=== PATIENT | male | born 2000 | race Caucasian/White ===

== ENCOUNTER 2020-01-10 11:54 | Outpatient (REF) | payer OTHER, SELFPAY | END 2020-01-10 11:55 | disposition home or self-care (01) | LOC: HO.LAB 11:54 | PROVIDERS: Visit Provider Internal Medicine | DX: Z20.828 Contact with and (suspected) exposure to other viral communicable diseases (principal) | CPT/HCPCS: C9803; U0003 ==

== ENCOUNTER 2024-04-14 09:56 | Outpatient (AMB) | payer OTHER, SELFPAY ==
--- NOTE | 2024-04-14 10:02 | MHC.PC.OV ---
Vital Signs 04/14/24 10:12 Height 6 ft 1 in Weight 122 lb 2 oz BMI 16.1 BP 100/60 Blood Pressure Location Lt brachial Position Sitting Respiration 14 Pulse 62 Pulse Source Pulse Oximeter Temp 99.1 F Temp Source Oral Pulse Oximetry (%) 100 Oxygen Delivery Method Room Air Intake Visit Reasons: LAPEL BASTER/PErequest Intake Note: new pt establish care Container Finishing Inspector Required: No Allergies No Known Allergies Allergy (Verified 04/14/24 10:05) Medication List - Last Reconciled 04/14/24 by Nick Rodriguez MD No Known Home Meds Tobacco use date assessed: 04/14/24 Dental Screening Dental Screen Date: 04/14/24 Did you have a dental visit in the last 12 months?: Yes Did you have a dental problem in the last 6 months where you did not have access to dental care?: No Was dental information given to patient?: No HPI LAPEL BASTER/PErequest HPI Details New Patient? ?? Prior PCP:? Freddy Vivas Last office visit/CPE:? 2021 Acute issue(s):? Pt is underweight. Family members also thin. Pt feels well. No appetite issues. ?? PMHx:? Mild Anxiety SurgHx:? [place] Teeth FHx:?Mom: Melanoma. Dad: Goiter/thyroid, Melanoma, Anxiety. SocHx:? Nicotine pouch. Nonsmoker, EtOH: Socially 1-2 dr. No drugs. PFSH Surgical History (Updated 04/14/24 @ 10:07 by Ben Carmen CMA) [place] teeth removed Family History (Updated 04/14/24 @ 10:11 by Ben Carmen CMA) Mother High blood pressure Melanoma Father High blood pressure Thyroid disorder Melanoma GERD (gastroesophageal reflux disease) Paternal Grandmother High blood pressure Clotting disorder Thyroid disorder FH: mental illness Paternal Uncle GERD (gastroesophageal reflux disease) FH: mental illness Paternal Aunt FH: mental illness Social History (Updated 04/14/24 @ 10:07 by Ben Carmen CMA) Housing: House Patient Tobacco Use Status: Never used Tobacco e-Cigarette/Vaping Use: Never Used Second Hand Smoke Exposure: No Substance Use Type: Marijuana service: No Current occupational status: employed Current occupation: banker Current occupational exposures/hazards: No Cognitive needs: No Hearing needs: No Vision needs: No Questionnaire PHQ-9 Over the last 2 weeks, how often have you been bothered by any of the following problems? 1. Little interest or pleasure in doing things: not at all 2. Feeling down, depressed, or hopeless: not at all 3. Trouble falling or staying asleep, or sleeping too much: not at all 4. Feeling tired or having little energy: not at all 5. Poor appetite or overeating: not at all 6. Feeling bad about yourself - or that you are a failure or have let yourself or your family down: not at all 7. Trouble concentrating on things, such as reading the newspaper or watching television: not at all 8. Moving or speaking so slowly that other people could have noticed. Or the opposite - being so fidgety or restless that you have been moving around a lot more than usual: not at all 9. Thoughts that you would be better off or of hurting yourself in some way: not at all Total score: 0 Depression Screening Interpretation: Negative Depression Screening Done: Yes 17037 - PHQ-9 Billing: Yes Source: Developed by Drs. Armen Tang, Jackie Garcia, Roberth Figueroa and colleagues, with an educational goldy from [employer]. Thrive Questionnaire Date Thrive assessed: 04/14/24 I am a: Patient What is your living situation today?: I have a steady place to live Within the past 12 months, did the food you bought not last and you didn't have the money to get more?: Never true Within the past 12 months, did you worry whether your food would run out before you got money to buy more?: Never true Do you have trouble paying for medicines?: No Do you have trouble getting transportation to medical appointments?: No Do you have trouble paying your heating and electricity bill?: No Do you have trouble taking care of your child, family member or friend?: No Do you have trouble with day-to-day activities such as bathing, preparing meals, shopping, managing finances, etc.?: No Are you currently unemployed and looking for a job?: No Are you interested in more education?: No Please select the resources that you would like help with: None Currently or been in a relationship where the following occur: No concerns reported THRIVE Score: 0 AUDIT C Alcohol Use Questionnaire (AUDIT-C) 1. How often do you have a drink containing alcohol?: Monthly or less 2. How many drinks containing alcohol do you have on a typical day when you are drinking?: 1 or 2 3. How often do you have six or more drinks on one occasion?: Never Total Score: 1 Score Reviewed/Action Taken: Yes EFRAIN-7 AMB Questionnaire EFRAIN-7 Date EFRAIN - 7 assessed: 04/14/24 Feeling nervous, anxious, or on edge: 0 = Not at all Not being able to stop or control worryin = Not at all Worrying too much about different things: 0 = Not at all Trouble relaxin = Not at all Being so restless that it is hard to sit still: 0 = Not at all Becoming easily annoyed or irritable: 0 = Not at all Feeling afraid as if something awful might happen: 0 = Not at all Total EFRAIN-7 score (0-4 normal; 5-9 mild; 10-14 moderate; 15-21 severe): 0 Source: Developed by Drs. Armen Tang, Jackie Garcia, Roberth Figueroa and colleagues, with an educational goldy from [employer]. EFRAIN-7 Assessment Billing EFRAIN-7 Assessment Tool: EFRAIN-7 Assessment 33957 Review of Systems Const Denies chills, Denies fatigue, Denies fever(s), Denies headache(s) and Denies weakness Eyes Denies change in vision ENT Denies dizziness and Denies headache(s) Card Denies chest pain, Denies lightheadedness, Denies dyspnea and Denies other (Palpitations) Resp Denies cough, Denies dyspnea, Denies wheezing and Denies other ( shortness of breath) GI Denies abdominal pain, Denies melena, Denies hematochezia, Denies change in bowel habits, Denies dyspepsia and Denies nausea Denies hematuria and Denies dysuria Musc Denies numbness and Denies tingling Skin/Breast Denies rash, Denies unusual bruising and Denies wounds Neuro Denies dizziness, Denies headache(s), Denies numbness, Denies Sensory deficit (Neuro), Denies tingling, Denies paresthesias and Denies weakness Psych Denies anxiety and Denies depression Endo Denies fatigue Kenny/Lymph Denies easy bleeding and Denies easy bruising Aller/Immun Denies wheezing Physical exam (Primary Care) Vital Signs: Last Vital Signs Temp 99.1 F 04/14/24 10:12 Pulse 62 04/14/24 10:12 Resp 14 04/14/24 10:12 BP 100/60 04/14/24 10:12 Pulse Ox 100 04/14/24 10:12 Oxygen Delivery Method Room Air 04/14/24 10:12 BMI result Body Mass Index 16.1 Tobacco/Smoking Status: Tobacco use Status Tobacco use date assessed 04/14/24 04/14/24 10:15 Patient Tobacco Use Status Never used Tobacco 04/14/24 10:15 e-Cigarette/Vaping Use Never Used 04/14/24 10:15 PHQ-9: PHQ-9 Score PHQ-9: Total score 0 04/14/24 10:33 Depression Screening Interpretation: Negative Thrive Assessment: Date of Thrive Assessment Date Thrive assessed 04/14/24 04/14/24 10:15 Currently or been in a relationship where the following occur: No concerns reported Const General: no acute distress and well developed Nutritional Appearance: well nourished and underweight Orientation/consciousness: patient oriented x3 HENMT Head: Yes normocephalic and Yes atraumatic Ears: hearing grossly normal bilaterally and TM's normal bilaterally General nose exam: Normal external nose present and Normal nares present Mouth: Normal oral and palatal mucosa present and moist mucous membranes Teeth and gingiva: dentition normal Throat: Yes posterior oropharynx normal Eyes General: appearance normal, both eyes and all related structures Pupils: Equal, round and reactive pupils present EOM: EOMs intact bilaterally Neck Neck: Yes normal visual inspection, Yes no lymphadenopathy and Yes trachea midline Thyroid: Thyroid normal Carotids: no bruits Lymphatic: no lymphadenopathy noted Chest Chest palpation & inspection: normal inspection of the chest Resp Effort & Inspection: normal respiratory effort Auscultation: clear to auscultation bilaterally Cardio Rate: regular rate Rhythm: regular rhythm Heart sounds: S1 normal heart sound present, S2 normal heart sound present, no gallops, no murmurs and no rubs Bruits: no abdominal aortic bruits and no carotid bruits GI Palpation (GI): No Abdominal aortic bruit present, Soft to palpation, nontender, No hepatosplenomegaly present and No Rebound tenderness present Auscultation: normal bowel sounds General: Yes no CVA tenderness Back/Spine/Pelvis Back: no CVA tenderness Cervical Spine: cervical ROM normal and No Cervical spine tenderness Thoracic/Lumbar Spine: thoraco-lumbar ROM normal, No pain with thoraco-lumbar ROM, No thoracic spinal tenderness and No lumbar spinal tenderness Skin Lesions: no lesions Rashes: no rashes Trauma: no lacerations or abrasions Wounds: no wounds Nails: normal Neuro General: patient oriented x3 and gait normal Cranial nerves: Yes Equal, round and reactive pupils present Cognition (Neuro): normal cognition Gait exam (Neuro): Normal gait present Motor exam (neuro): 5/5 motor strength present throughout Sensory Exam: No Sensory deficit (Neuro) Deep tendon reflexes (DTR's): Right patellar reflex intensity grade: 2+ and Left patellar reflex intensity grade: 2+ Extrem General: Yes normal to inspection and No edema Psych Appearance: grossly normal Affect: normal affect Attitude: cooperative Thought process: Normal thought process present Coding Level of Care Code New Pt Level 3 (34019) Diagnoses Adult general medical exam Z00.00 Underweight (BMI < 18.5) R63.6; Z68.1 Anxiety F41.9 Additional Codes EFRAIN-7 Assessment Billing - EFRAIN-7 Assessment Tool: EFRAIN-7 Assessment 11651 ([id number]) PHQ-9 - 76081 - PHQ-9 Billing: Yes ([id number]) Assessment & Plan Assessment & Plan (1) Adult general medical exam: Code(s): Z00.00 - Encounter for general adult medical examination without abnormal findings Category: Medical Plan: 23-year-old?male?presents?as?new?patient?for?complete?physical?exam Encouraged?healthy?diet?with?active?lifestyle?and?exercise. (2) Underweight (BMI < 18.5): Code(s): R63.6 - Underweight; Z68.1 - Body mass index [BMI] 19.9 or less, adult Category: Medical Plan: Underweight?status?but?appears?healthy?today. Family?members?who?are?thin?also.??No?appetite?problems. Encouraged?high-protein?diet?and?resistance?training (3) Anxiety: Code(s): F41.9 - Anxiety disorder, unspecified Category: Medical Plan: Mild?anxiety. Patient?declines?medication?or?referral?to?therapy?today. I?let?him?know?that?these?are?available. Orders: Orders TSH reflex Free T4 Today Z00.00 - Encounter for general adult medical examination without abnormal findings Syphilis Screen Today Z11.3 - Encounter for screening for infections with a predominantly sexual mode of transmission Vitamin D 25-OH Total Today E55.9 - Vitamin D deficiency, unspecified Comprehensive [place]. Panel Fast Today Z00.00 - Encounter for general adult medical examination without abnormal findings Lipid Panel Today Z00.00 - Encounter for general adult medical examination without abnormal findings Microalbumin, Random (w Creat) Today I10 - Essential (primary) hypertension Complete Blood Count Auto Diff Today Z00.00 - Encounter for general adult medical examination without abnormal findings UA and rflx microscopic Today Z00.00 - Encounter for general adult medical examination without abnormal findings CT NG by PCR Today Z11.3 - Encounter for screening for infections with a predominantly sexual mode of transmission Hepatitis B,C Profile Today Z11.3 - Encounter for screening for infections with a predominantly sexual mode of transmission HIV Ab/Ag Today Z11.3 - Encounter for screening for infections with a predominantly sexual mode of transmission Vitamin B12 and Folate Today E53.8 - Deficiency of other specified B group vitamins
[2024-04-14 10:12] VITALS: BP 100/60; PULSE 62; RESP 14; TEMP 37.3; O2SAT 100; BMI 16.1
--- OUTSIDE RECORDS SUMMARY | 2024-04-14 10:39 | XMS_ITS | Encounter Summary ---
Author Organization [facility] Address [address] [place] [address] Phone Care Team Providers Care Portable Sawyer Name Role Phone Freddy Curtis MD Primary Care Provider [phone] Encounter Details Date Type Department Care Team (Late st Contact Info) Description 07/27/2014 Documentation [facility] [place] [address] [place], [place] [phone] Family Medicine, Physician [address] [place], [place] [phone] Social History Tobacco Use Types Packs/Day Years Used Date Smoking Tobacco: Never Assessed Sex and Gender Information Value Date Recorded Sex Assigned at Not on file Legal Sex Male 4:57 PM EDT Gender Identity Not on file Sexual Orientation Straight 10/30/2021 2: 20 PM EDT documented as of this encounter Plan of Treatment Not on file documented as of this encounter Visit Diagnoses Not on filedocumented in this encounter Care Teams Portable Sawyer Relationship Specialty Start Date End Date Freddy Curtis MD [address] [place] [id number] PCP - General Pediatrics 06/21/17 06/03/22 documented as of this encounter
--- OUTSIDE RECORDS SUMMARY | 2024-04-14 10:39 | XMS_ITS | Encounter Summary ---
Author Organization [facility] Address [address] [place] [address] Phone Care Team Providers Care Care Center Manager Name Role Phone Freddy Curtis MD Primary Care Provider [phone] Encounter Details Date Type Department Care Team (Late st Contact Info) Description 09/22/2012 Documentation [facility] [place] Medicine [address] [place] [address] Family Medicine, Physician [address] [place], [place] [phone] Social History Tobacco Use Types Packs/Day Years [...] on filedocumented in this encounter Care Teams Care Center Manager Relationship Specialty Start Date End Date Freddy Curtis MD [address] [place] [id number] PCP - General Pediatrics 06/21/17 06/03/22 documented as of this encounter
--- OUTSIDE RECORDS SUMMARY | 2024-04-14 10:39 | XMS_ITS | Encounter Summary ---
Author Organization [facility] Address [address] [place] [address] Phone Care Team Providers Care Timber Skidder Name Role Phone Freddy Curtis MD Primary Care Provider Encounter Details Date Type Department Care Team (Late st Contact Info) Description 10/08/2016 Conversion Encounter [facility] [place] [address] [place] [address] Social History Tobacco Use Types Packs/Day Years Used Date Smoking Tobacco: Never Comments:Never smoker Sex and Gender Information Value Date Recorded Sex Assigned at Not on file Legal Sex Male 4:57 PM EDT Gender Identity Not on file Sexual Orientation Straight 10/30/2021 2: 20 PM EDT documented as of this encounter Plan of Treatment Not on file documented as of this encounter Visit Diagnoses Not on filedocumented in this encounter Care Teams Timber Skidder Relationship Specialty Start Date End Date Freddy Curtis MD [address] [place] [address] PCP - General Pediatrics 06/21/17 06/03/22 documented as of this encounter
--- OUTSIDE RECORDS SUMMARY | 2024-04-14 10:39 | XMS_ITS | Clinical Summary ---
Author Organization [facility] Address [address] [place] [address] Phone Care Team Providers Care Business Associate Name Role Phone Unavailable Primary Care Provider Unavailabl e Allergies Active Allergy Reactions Criticality Noted Date Comments Environmental 01/27/2021 Seasonal Medications Clindamycin Phos-Benzoyl Perox gel APPLY IN THE EVENING FOR ACNE FACE CHEST BACK 3 08/18/2017 Active Cetirizine HCl (ZYRTEC ALLERGY) 10 MG capsule Take by mouth. Active doxycycline 100 MG capsule TAKE 1 CAPSULE EVERY DAY WITH FOOD (NO DAIRY). REMAIN UPRIGHT AT LEAST 30 MINUTES AFTER TAKING. 08/20/2021 Active Active Problems Problem Noted Date Diagnosed Date Acute seasonal allergic rhinitis due to pollen 0 08/27/2017 Assessment & Plan (10/30/2021 2:09 PM EDT): Well control, OTC as needed. Acne vulgaris 08/17/2016 Overview (08/27/2017): Started benzoyl peroxide wash bid and tretinoin cream qhs. 08/08, Assessment & Plan (10/30/2021 2:09 PM EDT): BP+ Clinda cream, good compliance, better. Minimal at the moment Anxiety 07/05/2014 Overview (08/27/2017): Some mild sx of anxiety especially prior to sports competition - feels his heart racing. Being managed with homoe support, redirection. 07/06. Atopic dermatitis 05/30/2009 Assessment & Plan (10/30/2021 2:08 PM EDT): Usually during winter. Lotion prn for now. Immunizations Immunization Administration Dates Next Due DTaP 5 05/15/2004, 2,2000,09/13,2000 H1N1 03/13/2009,02/04/2009,01/29/2009 Hep A, ped/adol 07/31/2015,07/05/2014 Hep B, ped/adol 2000,2000,2000 Hib (PRP-T) 08/10/2001, 1,2000,05/17 IPV 05/15/2004, 2,2000,05/17 Influenza Split 12/29/2011,01/21/2011,11/18/2009 Influenza, injectable, quadr ivalent, preservative free 10/30/2021,12/21/2020,12/31/2018,01/27,03/03/2017,01/17/2013 Influenza, injectable, trivalent 02/06/2005,11/23 MMR 05/15/2004,05/18/2001 Meningococcal B Trumenba 08/18/2019,08/11/2018 Meningococcal Conj (Menactra) MCV4P 08/27/2017,0 05/30/2012 Pneumococcal Conjugate 08/10/2001,2000,2000,05/17 Tdap 05/30/2012 Varicella 05/13/2009,05/18/2001 Family History Medical History Relation Name Comments No Known Problems Brother Andi Villa Goiter Father Nick Hyperlipidemia Father Nick Hypertension Father Nick No Known Problems Mother Lupe Anxiety disorder Other Relation Name Status Comments Brother Andi Villa Alive Brother: Alive and well Father Nick Alive Father: Hyperte nsion, Hyperlipidemia Maternal Grandmother Alive Materna l grandmother: Hypertension, Diabetes mellitus Mother Lupe Alive Mother: Alive a nd well Other Paternal Grandfather Alive Paterna l grandfather: Seizure disorder Paternal Grandmother Alive Paterna l grandmother: Hypertension, Hyperlipidemia Social History Tobacco Use Types Packs/Day Years Used Date Smoking Tobacco: Never Smokeless Tobacco: Never Tobacco Cessation:Counseling Given: Yes Comments:Never smoker Alcohol Use Standard Drinks/Week Comments Never 0 (1 standard drink = 0.6 oz pur e alcohol) Hunger/Food Answer Date Recorded In the last 12 months, did y ou or your family ever eat less than you felt you should because there wasn't enough money for food? No 09/16/2020 Stable Housing Answer Date Recorded Are you worried that in the next 2 months you may not have stable housing? No 09/16/2020 Transportation Concerns Answer Date Rec orded In the last 12 months, have you or your family ever had to go without healthcare because you didn't have a way to get there? No 09/16/2020 Hazards in Home Answer Date Recorded Think about the place you li ve. Do you have problems with any of the following? Pests (mice or roaches), mold, no/not working smoke detectors, water leaks, no window guards. No 2020 Financing Utilities Answer Date Recorde d In the last 12 months, has t he electric, gas, oil, or water company threatened to shut off your services in your home? No 09/16/2020 Safety at Home Answer Date Recorded Are you or your family worried about feeling saf e in your home? No 09/16/2020 Outside Support Answer Date Recorded Do you feel that you need mo re support from other people or programs to help you care for yourself or your family? No 09/16/2020 Understanding Health Concerns Answer Da te Recorded Do you need help understandi ng your or your child's healthcare needs (diagnosis, medications, plan, etc.)? No 09/16/2020 Financing Health Concerns Answer Date R ecorded In the last 12 months, was t here a time when your child needed to see a doctor or get medications or supplies but could not because of cost? No 09/16/2020 Missing School or Work Answer Date Gasper rded Did you or your child miss s chool or work because of a health problem that could have been avoided? No 09/16/2020 Sex and Gender Information Value Date Recorded Sex Assigned at Not on file Legal Sex Male 4:57 PM EDT Gender Identity Not on file Sexual Orientation Straight 10/30/2021 2: 20 PM EDT Last Filed Vital Signs Vital Sign Reading Time Taken Comments Blood Pressure 110/70 10/30/2021 2:19 PM EDT Pulse 73 10/30/2021 1:58 PM EDT Temperature 36.6 ??C (97.9 ??F) 10/30/2021 1:58 PM E DT Respiratory Rate - - Oxygen Saturation - - Inhaled Oxygen Concentration - - Weight 54.9 kg (121 lb) 10/30/2021 1:58 PM EDT Height 185.4 cm (6' 1 ) 10/30/2021 1:58 PM EDT Body Mass Index 15.96 10/30/2021 1:58 PM EDT Plan of Treatment Health Maintenance Due Date Last Done Comments HPV Vaccines (1 - Male 3-dos e series) 05/13/2015 DTaP,Tdap,and Td Vaccines (6 - Td or Tdap) 05/30/2022 05/30/2012, 05/15/2004, 11/09/2001, Additional history exists Influenza Vaccines (#1) 2023 10/31/19, 12/21/2020, 12/31/2018, Additional history exists COVID-19 Vaccine (2023-2 5 season) 2023 05/17/2021, 09/20/2020, 08/23/2020 Hepatitis B Vaccines Completed 2000, 2000, 2000 HIB Vaccines Completed 08/10/2001, 10/23, 2000, Additional history exists Pneumococcal Vaccine Completed 08/10/2001, 2000, 2000, Additional history exists IPV Vaccines Completed 05/15/2004, 10/23, 2000, Additional history exists MMR Vaccines Completed 05/15/2004, 05/18/2001 Varicella Vaccines Completed 05/13/2009, 05/18/2001 Hepatitis A Vaccines Completed 07/31/2015, 07/06/19 15 Meningococcal Vaccine Completed 08/27/2017, 013 Men B Vaccine Completed 08/18/2019, 08/11/2018
== END 2024-04-14 10:53 | disposition home or self-care (01) ==
PROVIDERS: PCP Family Medicine; Visit Provider Family Medicine
DX: Z00.00 Encounter for general adult medical examination without abnormal findings (principal); R63.6 Underweight; Z68.1 Body mass index [BMI] 19.9 or less, adult; F41.9 Anxiety disorder, unspecified

== ENCOUNTER → 2024-04-14 09:56 | Outpatient (BNVA) | payer OTHER, SELFPAY | PROVIDERS: PCP Family Medicine; Visit Provider Family Medicine | DX: Z00.00 Encounter for general adult medical examination without abnormal findings (principal); R63.6 Underweight; Z68.1 Body mass index [BMI] 19.9 or less, adult; F41.9 Anxiety disorder, unspecified | CPT/HCPCS: 96127 ==

== ENCOUNTER 2024-04-25 08:39 | Outpatient (REF) | payer OTHER, SELFPAY ==
--- OUTSIDE RECORDS SUMMARY | 2024-04-25 09:15 | XMS_ITS | Encounter Summary ---
Author Organization [facility] Address [address] [place] [address] Phone Care Team Providers Care Realtime Court Reporter Name Role Phone Freddy Curtis MD Primary Care Provider [phone] Encounter Details Date Type Department Care Team (Late st Contact Info) Description 10/08/2016 Conversion Encounter [facility] [place] [address] [place] [address] Social History Tobacco Use Types Packs/Day Years [...] on filedocumented in this encounter Care Teams Realtime Court Reporter Relationship Specialty Start Date End Date Freddy Curtis MD [address] [place] [address] PCP - General Pediatrics 06/21/17 06/03/22 documented as of this encounter
--- OUTSIDE RECORDS SUMMARY | 2024-04-25 09:15 | XMS_ITS | Encounter Summary ---
Author Organization [facility] Address [address] [place] [address] Phone Care Team Providers Care Appliance Service Supervisor Name Role Phone Freddy Curtis MD Primary Care Provider [phone] Encounter Details Date Type Department Care Team (Late st Contact Info) Description 09/22/[address] [facility] [place] [address] [place] [address] Family Medicine, Physician [address] [place], [place] [phone] Social History Tobacco Use Types Packs/Day Years [...] on filedocumented in this encounter Care Teams Appliance Service Supervisor Relationship Specialty Start Date End Date Freddy Curtis MD [address] [place] [address] PCP - General Pediatrics 06/21/17 06/03/22 documented as of this encounter
--- OUTSIDE RECORDS SUMMARY | 2024-04-25 09:15 | XMS_ITS | Clinical Summary ---
Author Organization [facility] Address [address] [place] [phone] Phone Care Team Providers Care Director Of Head Start Name Role Phone Unavailable Primary Care Provider [...] Usually during winter. Lotion prn for now. Encounters Date Type Department Care Team Description 04/20/2024 Telephone [facility] [place] [address] [place], [place] [phone] Karina Smith MD Medical Records from Last 3 Months Immunizations Immunization Administration Dates Next Due DTaP [...] 36.6 ??C (97.9 ??F) 10/30/2021 1:58 PM ED T Respiratory Rate - - Oxygen Saturation - [...]
--- OUTSIDE RECORDS SUMMARY | 2024-04-25 09:15 | XMS_ITS | Encounter Summary ---
Author Organization [facility] Address [address] [place] [address] Phone Care Team Providers Care Senior Tech Manufacturing Engineering Name Role Phone Freddy Curtis MD Primary Care Provider [phone] Encounter Details Date Type Department Care Team (Late st Contact Info) Description 07/27/2014 Documentation [facility] [place] Family Medicine [address] [place], [place] [id number] Family Medicine, Physician [address] [place], [place] [id number] Social History Tobacco Use Types Packs/Day Years [...] on filedocumented in this encounter Care Teams Senior Tech Manufacturing Engineering Relationship Specialty Start Date End Date Freddy Curtis MD [address] [place] [id number] PCP - General Pediatrics 06/21/17 06/03/22 documented as of this encounter
--- OUTSIDE RECORDS SUMMARY | 2024-04-25 09:15 | XMS_ITS | Encounter Summary ---
Author Organization [facility] Address [address] [place] [address] Phone Care Team Providers Care Inspector Fibrous Wallboard Name Role Phone Unavailable Primary Care Provider Unavailabl e Reason for Visit * Reason Onset Date Comments Medical Records 04/20/2024 Encounter Details Date Type Department Care Team (Late st Contact Info) Description 04/20/2024 Telephone [facility] [place] [address] [place] [address] Karina Smith MD [address] [place] [address] Medical Records Social History Tobacco Use Types Packs/Day Years Used Date Smoking Tobacco: Never Smokeless Tobacco: Never Comments:Never smoker Alcohol Use Standard Drinks/Week Comments [...] PM EDT documented as of this encounter Miscellaneous Notes * Telephone Encounter - Keisha Willis - 04/20/2024 1:44 PM EST Authorization for Release of Records received on 04/04/24 completed by Patient. Records Faxed on 04/20/24 by Keisha Willis. Records Faxed to [facility] at [phone] to/by Keisha Willis on 04/20/24. documented in this encounter Plan of Treatment Not on file documented as of this encounter Visit Diagnoses Not on filedocumented in this encounter
[2024-04-25 11:19] LABS: Appearance Urine Clear; Color Urine Yellow; Glucose Urine UA Negative (Negative); Leukocyte Esterase Urine Negative (Negative); Nitrite Urine Negative (Negative); PH 5.5 (5.0-9.0); UMIC TRIGGER UA YES; Urine Blood Trace (Negative); Urine Ketones Negative (Negative); Urine Protein Negative (Neg-Trace)
[2024-04-25 11:19] LABS: MANUAL DIFF FLAG NO
[2024-04-25 11:22] LABS: Bacteria Urine None Seen (None Seen); Hyaline Casts Urine 0-2 /LPF (0-2); RBC Urine 0-2 /HPF (0-2); Squamous Epithelial Cell Urine 0-2 /HPF (0-2); WBC Urine 0-5 /HPF (0-5)
[2024-04-25 11:31] LABS: Hematocrit 40.8 % (42.0-52.0); Hemoglobin 13.9 g/dl (14.0-18.0); Imm Gran Abs Auto 0.01 X10*3/uL (0.00-0.03); Imm Gran Pct Auto 0.3 % (0.0-0.4); Lymphocytes Absolute Auto 0.8 X10*3/uL (1.2-4.9); Lymphocytes Percent Auto 28.6 % (20-40); Mean Corpuscular HGB Conc 34.1 g/dl (31.0-36.0); Mean Corpuscular Hemoglobin 29.4 pg (27.0-33.0); Mean Corpuscular Volume 86.4 fL (80.0-98.0); Mean Platelet Volume 10.1 fL (9.4-12.4); Monocytes Absolute Auto 0.2 X10*3/uL (0.1-1.2); Monocytes Percent Auto 7.9 % (2-11); Neutrophils Absolute Auto 1.8 x10*3/uL (2.0-8.3); Neutrophils Percent Auto 61.2 % (45-73); Platelet Count 282 X10*3/uL (160-400); Red Blood Count 4.72 X10*6/uL (4.60-5.80); Red Cell Distribution Width 11.6 % (11.0-16.0); White Blood Count 2.9 X10*3/uL (4.8-10.8)
[2024-04-25 12:01] LABS: Alanine Aminotransferase 16 U/L (0-40); Albumin Level 4.9 g/dL (3.5-5.0); Alkaline Phosphatase 47 U/L (39-117); Anion Gap 12 (12-20); Aspartate Amino Transferase 18 U/L (5-37); Bilirubin Total 0.8 mg/dL (0.0-1.0); Blood Urea Nitrogen 12 mg/dL (9-16); Calcium 9.8 mg/dL (8.4-10.2); Carbon Dioxide 29 mmol/L (22-29); Chloride 106 mmol/L (96-108); Cholesterol 188 mg/dL (<200); Estimated Glomerular Filt Rate > 60; Glucose Fasting 109 mg/dL (60-99); HDL Cholesterol 81 mg/dL (>40); LDL Cholesterol Calculated 98 mg/dL (<100); Sodium 143 mmol/L (135-145); Total Protein 8.3 g/dL (6.5-8.0); Triglycerides 45 mg/dL (<150)
[2024-04-25 12:19] LABS: Microalbum/Creatinine Ratio Ur 11.2 ug/mg cr (<30)
[2024-04-25 12:19] LABS: TSH reflex Free T4 0.84 uIU/mL (0.32-4.0); Vitamin D 25-OH Total 15.8 ng/mL (>30)
[2024-04-25 12:42] LABS: HBS Num1 0.18 mIU/mL (0-7.99); HBc Num1 0.12 S/CO (0.00-0.79); HBsAGNum1 0.31 S/CO (0.00-0.99); HIV AB/AG Nonreactive (Nonreactive); HIV Num 1 0.08 S/CO (0.00-0.99); Hepatitis B Core Antibody Nonreactive (Nonreactive); Hepatitis B Surface Antigen Negative (Negative); ~HepC Num1 0.11 S/CO (0.00-0.79); ~Hepatitis B Surface Antibody NONREACTIVE (Nonreactive); ~Hepatitis C Antibody Nonreactive (Nonreactive)
[2024-04-25 12:47] LABS: CT PCR NOT DETECTED (Not Detect.); NG PCR NOT DETECTED (Not Detect.)
[2024-04-25 12:48] LABS: Syphilis Screen Nonreactive (Nonreactive)
[2024-04-25 12:49] LABS: Folate 13.5 ng/mL (> or = 4.0); Vitamin B12 716 pg/mL (200-900)
== END 2024-04-25 08:40 | disposition home or self-care (01) ==
LOC: HO.WFDLDS 08:39
PROVIDERS: Visit Provider Family Medicine
DX: Z00.00 Encounter for general adult medical examination without abnormal findings (principal); Z11.3 Encounter for screening for infections with a predominantly sexual mode of transmission; I10 Essential (primary) hypertension; E53.8 Deficiency of other specified B group vitamins; E55.9 Vitamin D deficiency, unspecified
CPT/HCPCS: 80053; 80061; 81001; 82043; 82306; 82570; 82607; 82746; 84443; 85025; 86704; 86706; 86780; 86803; 87340; 87389; 87491; 87591

== ENCOUNTER 2024-05-04 16:41 | Outpatient (AMB) | payer OTHER, SELFPAY ==
--- NOTE | 2024-05-04 16:40 | MHC.PC.OV ---
Intake Visit Reasons: f/u CPE-labs via telemedicine Ob Gyn Required: No Allergies No Known Allergies Allergy (Verified 05/04/24 16:40) Tobacco use date assessed: 04/14/24 Dental Screening Dental Screen Date: 04/14/24 HPI f/u CPE-labs via telemedicine HPI Details 23 y/o male presents to f/u labs via telemedicine. Labs drawn 04/25/24. Reviewed labs with pt. Mild anemia. Elevated fasting glucose of 109. He notes he felt like he had a good 12 hour fast. Triglycerides 45. TC 188. LDL 98. HDL 81. Vitamin D low at 15.8 ng/mL. [facility] Surgical History (Updated 04/14/24 @ 10:07 by DEB Bolanos) [place] teeth removed Family History (Updated 04/14/24 @ 10:11 by DEB Bolanos) Mother High blood pressure Melanoma Father High blood pressure Thyroid disorder Melanoma GERD (gastroesophageal reflux disease) Paternal Grandmother High blood pressure Clotting disorder Thyroid disorder FH: mental illness Paternal Uncle GERD (gastroesophageal reflux disease) FH: mental illness Paternal Aunt FH: mental illness Social History (Updated 04/14/24 @ 10:07 by DEB Bolanos) Housing: House Patient Tobacco Use Status: Never used Tobacco e-Cigarette/Vaping Use: Never Used Second Hand Smoke Exposure: No Substance Use Type: Marijuana service: No Current occupational status: employed Current occupation: banker Current occupational exposures/hazards: No Cognitive needs: No Hearing needs: No Vision needs: No Questionnaire Thrive Questionnaire Date Thrive assessed: 04/14/24 EFRAIN-7 AMB Questionnaire EFRAIN-7 Date EFRAIN - 7 assessed: 04/14/24 Source: Developed by Drs. Armen Tang, Jackie Garcia, Roberth Figueroa and colleagues, with an educational goldy from [employer]. Review of Systems Const Denies chills, Denies fatigue, Denies fever(s), Denies headache(s) and Denies weakness ENT Denies dizziness and Denies headache(s) Card Denies dyspnea Resp Denies cough, Denies dyspnea, Denies wheezing and Denies other (shortness of breath) Musc Denies numbness and Denies tingling Neuro Denies dizziness, Denies headache(s), Denies numbness, Denies tingling and Denies weakness Psych Denies anxiety and Denies depression Endo Denies fatigue Aller/Immun Denies wheezing Physical exam (Primary Care) Tobacco/Smoking Status: Tobacco use Status Tobacco use date assessed 04/14/24 05/04/24 16:40 Patient Tobacco Use Status Never used Tobacco 05/04/24 16:40 e-Cigarette/Vaping Use Never Used 05/04/24 16:40 Thrive Assessment: Date of Thrive Assessment Date Thrive assessed 04/14/24 05/04/24 16:40 Telehealth Telehealth Telehealth Platform: Telephone Location of provider rendering services: practice address Location of patient: address on file Patient Identification confirmed using: Name, : Yes Telehealth method: voice only Patient verbally consented to treatment: Yes Patient verbally consented to billing insurance company: Yes Patient informed of any privacy concerns related to visit: Yes Minutes spent on Phone/Video with Pt.: 6 Coding Level of Care Code Tele Est Pt Level 2 (59476) Diagnoses Mild anemia D64.9 Elevated fasting glucose R73.01 Low vitamin D level R79.89 Assessment & Plan Assessment & Plan (1) Mild anemia: Code(s): D64.9 - Anemia, unspecified Category: Medical Plan: Mild?anemia?and?mild?leukocytopenia Will?recheck?these?with?next?blood?draw. (2) Elevated fasting glucose: Code(s): R73.01 - Impaired fasting glucose Category: Medical Plan: Fasting?blood?sugar?is?elevated.??Will?recheck?this?with?next?blood?draw?along?with?an?A1c (3) Low vitamin D level: Code(s): R79.89 - Other specified abnormal findings of blood chemistry Category: Medical Plan: Low?vitamin-D?level.??He?has?started?vitamin-D?supplement. Will?recheck?vitamin-D?with?next?blood?draw Orders: Orders Complete Blood Count Auto Diff Today D64.9 - Anemia, unspecified, Z00.00 - Encounter for general adult medical examination without abnormal findings Hemoglobin A1c Today R73.01 - Impaired fasting glucose Comprehensive [place]. Panel Fast Today R73.01 - Impaired fasting glucose, Z00.00 - Encounter for general adult medical examination without abnormal findings Reticulocyte Count Today D64.9 - Anemia, unspecified Vitamin D 25-OH Total Today E55.9 - Vitamin D deficiency, unspecified, R79.89 - Other specified abnormal findings of blood chemistry IRON PROFILE Today D64.9 - Anemia, unspecified Vitamin B12 and Folate Today D64.9 - Anemia, unspecified, E53.8 - Deficiency of other specified B group vitamins Ferritin Today D64.9 - Anemia, unspecified
--- OUTSIDE RECORDS SUMMARY | 2024-05-04 19:24 | XMS_ITS | Clinical Summary ---
Author Organization [facility] Address [address] [place] [address] Phone Care Team Providers Care Concrete Mixer Truck Driver Name Role Phone Unavailable Primary Care Provider [...] Type Department Care Team Description 04/20/2024 Telephone [facility] [place] [address] [place], [place] [phone] Karina Smith MD Medical Records from Last [...]
--- OUTSIDE RECORDS SUMMARY | 2024-05-04 19:24 | XMS_ITS | Encounter Summary ---
Author Organization [facility] Address [address] [place] [address] Phone Care Team Providers Care Draw String Knotter Name Role Phone Freddy Curtis MD Primary Care Provider [phone] Encounter Details Date Type Department Care Team (Late st Contact Info) Description 10/08/2016 Conversion Encounter [facility] [place] [address] [place] [address] Social History Tobacco Use Types Packs/Day Years [...] on filedocumented in this encounter Care Teams Draw String Knotter Relationship Specialty Start Date End Date Freddy Curtis MD [address] [place] [address] PCP - General Pediatrics 06/21/17 06/03/22 documented as of this encounter
--- OUTSIDE RECORDS SUMMARY | 2024-05-04 19:25 | XMS_ITS | Encounter Summary ---
Author Organization [facility] Address [address] [place] [address] Phone Care Team Providers Care Research Fellow Name Role Phone Unavailable Primary Care Provider Unavailabl e Reason for Visit * Reason Onset Date Comments Medical Records 04/20/2024 Encounter Details Date Type Department Care Team (Late st Contact Info) Description 04/20/2024 Telephone [facility] [place] [address] [place] [address] Karina Smith MD [address] [place] [address] Medical Records Social History Tobacco Use Types [...] 04/20/24 by Keisha Willis. Records Faxed to [facility] at [phone] to/by Keisha Willis on 04/20/24. documented in this encounter Plan of Treatment Not on file documented as of this encounter Visit Diagnoses Not on filedocumented in this encounter
--- OUTSIDE RECORDS SUMMARY | 2024-05-04 19:25 | XMS_ITS | Encounter Summary ---
Author Organization [facility] Address [address] [place] [address] Phone Care Team Providers Care Breakfast And Room Attendant Name Role Phone Freddy Curtis MD Primary Care Provider [phone] Encounter Details Date Type Department Care Team (Late st Contact Info) Description 07/27/2014 Documentation [facility] Family Medicine [address] [place], [place] [id number] Family Medicine, Physician [address] [place], [place] [phone] Social History Tobacco Use Types Packs/Day Years [...] on filedocumented in this encounter Care Teams Breakfast And Room Attendant Relationship Specialty Start Date End Date Freddy Curtis MD [address] [place] [address] PCP - General Pediatrics 06/21/17 06/03/22 documented as of this encounter
--- OUTSIDE RECORDS SUMMARY | 2024-05-04 19:25 | XMS_ITS | Encounter Summary ---
Author Organization [facility] Address [address] [place] [address] Phone Care Team Providers Care Compliance Associate Name Role Phone Freddy Curtis MD Primary Care Provider [phone] Encounter Details Date Type Department Care Team (Late st Contact Info) Description 09/22/2012 Documentation [facility] [place] [address] [place] [address] Family Medicine, Physician [address] [place], [place] [id number] Social History Tobacco Use Types Packs/Day Years [...] on filedocumented in this encounter Care Teams Compliance Associate Relationship Specialty Start Date End Date Freddy Curtis MD [address] [place] [address] PCP - General Pediatrics 06/21/17 06/03/22 documented as of this encounter
== END 2024-05-04 17:05 | disposition home or self-care (01) ==
LOC: HO.HMCFM 16:41
PROVIDERS: PCP Family Medicine; Visit Provider Family Medicine
DX: D64.9 Anemia, unspecified (principal); R73.01 Impaired fasting glucose; R79.89 Other specified abnormal findings of blood chemistry

== ENCOUNTER → 2024-05-04 16:41 | Outpatient (BNVA) | payer OTHER, SELFPAY | PROVIDERS: PCP Family Medicine; Visit Provider Family Medicine ==

== ENCOUNTER 2024-08-07 08:35 | Outpatient (REF) | payer OTHER, SELFPAY ==
--- OUTSIDE RECORDS SUMMARY | 2024-08-07 09:01 | XMS_ITS | Encounter Summary ---
Author Organization [facility] Address [address] [place] [address] Phone Care Team Providers Care Golf Club Repairer Name Role Phone Freddy Curtis MD Primary Care Provider [phone] Encounter Details Date Type Department Care Team (Late st Contact Info) Description 10/08/2016 Conversion Encounter [facility] [place] [address] [place] [address] Social History Tobacco Use Types Packs/Day Years [...] on filedocumented in this encounter Care Teams Golf Club Repairer Relationship Specialty Start Date End Date Freddy Curtis MD [address] [place] [address] PCP - General Pediatrics 06/21/17 06/03/22 documented as of this encounter
[2024-08-07 11:15] LABS: MANUAL DIFF FLAG NO
[2024-08-07 11:23] LABS: Basophils Percent Auto 0.6 % (0-2); Eosinophils Absolute Auto 0.1 X10*3/uL (0.0-0.4); Eosinophils Percent Auto 1.6 % (0-4); Hematocrit 41.3 % (42.0-52.0); Hemoglobin 14.5 g/dl (14.0-18.0); Imm Gran Abs Auto 0.01 X10*3/uL (0.00-0.03); Imm Gran Pct Auto 0.2 % (0.0-0.4); Immature Retic Fraction 8.1 % (2.3-13.4); Lymphocytes Absolute Auto 1.3 X10*3/uL (1.2-4.9); Lymphocytes Percent Auto 20.6 % (20-40); Mean Corpuscular HGB Conc 35.1 g/dl (31.0-36.0); Mean Corpuscular Hemoglobin 29.6 pg (27.0-33.0); Mean Corpuscular Volume 84.3 fL (80.0-98.0); Mean Platelet Volume 9.7 fL (9.4-12.4); Monocytes Absolute Auto 0.4 X10*3/uL (0.1-1.2); Monocytes Percent Auto 6.1 % (2-11); Neutrophils Absolute Auto 4.4 x10*3/uL (2.0-8.3); Neutrophils Percent Auto 70.9 % (45-73); Platelet Count 383 X10*3/uL (160-400); Red Cell Distribution Width 11.4 % (11.0-16.0); Retic HGB Equivalent 34.1 pg (30.0-35.0); Reticulocyte Percent 1.1 % (0.5-1.8); Reticulocytes Absolute 0.052 X10*6/uL (0.026-0.095); White Blood Count 6.2 X10*3/uL (4.8-10.8)
[2024-08-07 11:32] LABS: Estimated Average Glucose 108 mg/dL; Hemoglobin A1c % 5.4 % (<6.0)
[2024-08-07 11:43] LABS: Alanine Aminotransferase 18 U/L (0-40); Albumin Level 5.2 g/dL (3.5-5.0); Alkaline Phosphatase 50 U/L (39-117); Anion Gap 13 (12-20); Aspartate Amino Transferase 23 U/L (5-37); Bilirubin Total 0.5 mg/dL (0.0-1.0); Blood Urea Nitrogen 10 mg/dL (9-16); Calcium 9.8 mg/dL (8.4-10.2); Carbon Dioxide 29 mmol/L (22-29); Chloride 106 mmol/L (96-108); Estimated Glomerular Filt Rate > 60; Glucose Fasting 113 mg/dL (60-99); Iron 80 mcg/dL (45-160); Percent Iron Saturation 23 % (15-50); Potassium 3.8 mmol/L (3.3-5.1); Sodium 144 mmol/L (135-145); Total Iron Binding Capacity 341 mcg/dL (228-428); Total Protein 8.1 g/dL (6.5-8.0); Unsaturated Iron Binding 261 ug/dL
[2024-08-07 12:05] LABS: Ferritin 110 ng/mL (20-250); Vitamin D 25-OH Total 41.9 ng/mL (>30)
[2024-08-07 12:10] LABS: Folate > 20.0 ng/mL (> or = 4.0); Vitamin B12 991 pg/mL (200-900)
[2024-08-07 14:19] LABS: Appearance Urine Clear; Color Urine Yellow; Glucose Urine UA Negative (Negative); Leukocyte Esterase Urine Negative (Negative); Nitrite Urine Negative (Negative); PH 6.5 (5.0-9.0); Specific Gravity - Urine <= 1.005 (1.005-1.025); Urine Blood Negative (Negative); Urine Ketones Negative (Negative); Urine Protein Negative (Neg-Trace)
== END 2024-08-07 08:36 | disposition home or self-care (01) ==
LOC: HO.WFDLDS 08:35
PROVIDERS: Visit Provider Family Medicine
DX: Z00.00 Encounter for general adult medical examination without abnormal findings (principal); R79.89 Other specified abnormal findings of blood chemistry; E55.9 Vitamin D deficiency, unspecified; E53.8 Deficiency of other specified B group vitamins; D64.9 Anemia, unspecified; R73.01 Impaired fasting glucose
CPT/HCPCS: 36415; 80053; 81003; 82306; 82607; 82728; 82746; 83036; 83540; 85025; 85045

== ENCOUNTER 2024-08-11 10:24 | Outpatient (AMB) | payer OTHER, SELFPAY ==
--- NOTE | 2024-08-11 10:18 | A.OFFPC_ITS ---
Intake Visit Reasons: f/u elevated fasting glucose, low vitamin D, labs Intake Note: patient is scheduled to review labs with pcp Allergies No Known Allergies Allergy (Verified 05/04/24 16:40) Tobacco use date assessed: 04/14/24 Dental Screening Dental Screen Date: 04/14/24 HPI f/u elevated fasting glucose, low vitamin D, labs HPI Details 24 y/o male presents to f/u elevated fas ting glucose, labs via telemed. Labs drawn 08/07/24. Reviewed labs with pt. Mild anemia improving. Fasting glucose 113. A1c 5.4%. Vitamin D improved from 15.8 ng/mL to 41.9 ng/mL. PFSH Surgical History (Updated 04/14/24 @ 10:07 by DEB Bolanos) [place] teeth removed Family History (Updated 04/14/24 @ 10:11 by DEB Bolanos) Mother High blood pressure Melanoma Father High blood pressure Thyroid disorder Melanoma GERD (gastroesophageal reflux disease) Paternal Grandmother High blood pressure Clotting disorder Thyroid disorder FH: mental illness Paternal Uncle GERD (gastroesophageal reflux disease) FH: mental illness Paternal Aunt FH: mental illness Social History (Updated 04/14/24 @ 10:07 by DEB Bolanos) Housing: House Patient Tobacco Use Status: Never used Tobacco e-Cigarette/Vaping Use: Never Used Second Hand Smoke Exposure: No Substance Use Type: Marijuana service: No Current occupational status: employed Current occupation: banker Current occupational exposures/hazards: No Cognitive needs: No Hearing needs: No Vision needs: No Questionnaire Thrive Questionnaire Date Thrive assessed: 04/11/24 I am a: Patient What is your living situation today?: I have a steady place to live Within the past 12 months, did the food you bought not last and you didn't have the money to get more?: Never true Within the past 12 months, did you worry whether your food would run out before you got money to buy more?: Never true Do you have trouble paying for medicines?: No Do you have trouble getting transportation to medical appointments?: No Do you have trouble paying your heating and electricity bill?: No Do you have trouble taking care of your child, family member or friend?: No Do you have trouble with day-to-day activities such as bathing, preparing meals, shopping, managing finances, etc.?: No Are you currently unemployed and looking for a job?: No Are you interested in more education?: No Please select the resources that you would like help with: None Currently or been in a relationship where the following occur: No concerns reported THRIVE Score: 0 EFRAIN-7 AMB Questionnaire EFRAIN-7 Date EFRAIN - 7 assessed: 04/14/24 Source: Developed by Drs. Armen Tang, Jackie Garcia, Roberth Figueroa and colleagues, with an educational goldy from [employer]. Review of Systems Const Denies chills, Denies fatigue, Denies fever(s), Denies headache(s) and Denies weakness ENT Denies dizziness and Denies headache(s) Card Denies dyspnea Resp Denies cough, Denies dyspnea, Denies wheezing and Denies other (shortness of breath) Musc Denies numbness and Denies tingling Neuro Denies dizziness, Denies headache(s), Denies numbness, Denies tingling and Denies weakness Psych Denies anxiety and Denies depression Endo Denies fatigue Aller/Immun Denies wheezing Physical exam (Primary Care) Tobacco/Smoking Status: Tobacco use Status Tobacco use date assessed 04/14/24 08/11/24 10:20 Patient Tobacco Use Status Never used Tobacco 08/11/24 10:20 e-Cigarette/Vaping Use Never Used 08/11/24 10:20 Thrive Assessment: Date of Thrive Assessment Date Thrive assessed 04/11/24 08/11/24 10:20 Currently or been in a relationship where the following occur: No concerns reported Telehealth Telehealth Telehealth Platform: Telephone Location of provider rendering services: practice address Location of patient: address on file Patient Identification confirmed using: Name, : Yes Telehealth method: voice only Patient verbally consented to treatment: Yes Patient verbally consented to billing insurance company: Yes Patient informed of any privacy concerns related to visit: Yes Minutes spent on Phone/Video with Pt.: 10 Coding Level of Care Code Tele Est Pt Level 2 (69095) Diagnoses Elevated fasting glucose R73.01 Low vitamin D level R79.89 Mild anemia D64.9 Assessment & Plan Assessment & Plan (1) Elevated fasting glucose: Code(s): R73.01 - Impaired fasting glucose Category: Medical Plan: Still?has?elevated?fasting?blood?sugar?though?A1c?is?5.4% Recommended?a?diet?lower?in?sugars?and?starches We?can?continue?to?monitor (2) Low vitamin D level: Code(s): R79.89 - Other specified abnormal findings of blood chemistry Category: Medical Plan: Vitamin-D?level?is?in?normal?range Continue?supplement (3) Mild anemia: Code(s): D64.9 - Anemia, unspecified Category: Medical Plan: Resolved/resolving We?can?recheck?this?with?next?blood?draw Orders: Orders Comprehensive [place]. Panel Fast Today Z00.00 - Encounter for general adult medical examination without abnormal findings Lipid Panel Today Z00.00 - Encounter for general adult medical examination without abnormal findings LDL Cholesterol Direct Today E78.5 - Hyperlipidemia, unspecified Microalbumin, Random (w Creat) Today I10 - Essential (primary) hypertension TSH reflex Free T4 Today Z00.00 - Encounter for general adult medical examination without abnormal findings UA CC w/rflx Micro + Cult Today Z00.00 - Encounter for general adult medical examination without abnormal findings Complete Blood Count Auto Diff Today Z00.00 - Encounter for general adult medical examination without abnormal findings
--- OUTSIDE RECORDS SUMMARY | 2024-08-11 10:43 | XMS_ITS | Encounter Summary ---
Author Organization [facility] Address [address] [place] [address] Phone Care Team Providers Care Fish Checker Name Role Phone Freddy Curtis MD Primary Care Provider [phone] Encounter Details Date Type Department Care Team (Late st Contact Info) Description 10/08/2016 Conversion Encounter [facility] [place] [address] [place] [address] Social History Tobacco Use Types Packs/Day Years [...] on filedocumented in this encounter Care Teams Fish Checker Relationship Specialty Start Date End Date Freddy Curtis MD [address] [place] [address] PCP - General Pediatrics 06/21/17 06/03/22 documented as of this encounter
== END 2024-08-11 17:06 | disposition home or self-care (01) ==
LOC: HO.HMCFM 10:24
PROVIDERS: PCP Family Medicine; Visit Provider Family Medicine
DX: R73.01 Impaired fasting glucose (principal); R79.89 Other specified abnormal findings of blood chemistry; D64.9 Anemia, unspecified

== ENCOUNTER → 2024-08-11 10:24 | Outpatient (BNVA) | payer OTHER, SELFPAY | PROVIDERS: PCP Family Medicine; Visit Provider Family Medicine ==